=== PATIENT | male | born 1975 | race Caucasian/White ===

== ENCOUNTER 2019-07-05 16:50 | Emergency (ER) | payer OTHER ==
[~2019-07-05] VITALS: Ht 177.8 cm; Wt 76.7 kg
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
[2019-07-05] MEDS: IV NORMAL SALINE 1000ML BAG 1,000 ML IV ONE (18:11)
[2019-07-05] MEDS: fentaNYL PF VIAL 100 MCG/2 ML VIAL IV ONE ×2 (18:12→19:09)
[2019-07-05 18:14] LABS: BASO % 0 % (0-3); EOS % 0 % (0-3); HEMATOCRIT 45.3 % (39.0-53.0); HEMOGLOBIN 15.5 g/dL (13.0-17.5); LYMPH # 1.8 x10^3/uL (1.0-4.8); LYMPH % 11 % (24-48); MEAN CORPUSCULAR HEMOGLOBIN 31 pg (25-35); MEAN CORPUSCULAR HGB CONC 34 g/dL (31-37); MEAN CORPUSCULAR VOLUME 90 fL (79-100); MONO % 6 % (0-9); NEUT # 12.7 x10^3/uL (1.8-7.7); NEUT % 82 % (31-73); PLATELET COUNT 264 x10^3/uL (140-400); RED BLOOD COUNT 5.04 x10^6/uL (4.30-5.70); RED CELL DISTRIBUTION WIDTH 12.9 % (11.5-14.5); WHITE BLOOD COUNT 15.6 x10^3/uL (4.0-11.0)
[2019-07-05 18:21] LABS: CALCIUM 9.5 mg/dL (8.5-10.1); CREATININE 1.2 mg/dL (0.7-1.3); GFR 66.4; POTASSIUM 3.5 mmol/L (3.5-5.1)
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
[2019-07-05 18:26] LABS: ALBUMIN 4.7 g/dL (3.4-5.0); ALBUMIN/GLOBULIN RATIO 1.2 (1.0-1.7); TOTAL BILIRUBIN 0.6 mg/dL (0.2-1.0); TOTAL PROTEIN 8.6 g/dL (6.4-8.2)
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
[2019-07-05 18:33] LABS: PROTHROMBIN TIME PATIENT 12.9 SEC (11.7-14.0)
[2019-07-05] MEDS ORDERED: KETO10TA PO (18:37)
[2019-07-05 18:54] VITALS: BP 147/83
[2019-07-05 19:01] LABS: % BANDS 6 % (0-9); % BASOS 1 % (0-3); % LYMPHS 11 % (24-48); % MONOS 7 % (0-10); % SEGS 75 % (35-66); PLT ESTIMATE ADEQUATE (ADEQUATE)
== END 2019-07-05 19:10 | disposition home or self-care (01) ==
LOC: EEVIPCON 16:50 → ER 16:50
DX: S02.2XXA Fracture of nasal bones, initial encounter for closed fracture (principal); S43.101A Unspecified dislocation of right acromioclavicular joint, initial encounter; S01.112A Laceration without foreign body of left eyelid and periocular area, initial encounter; S00.11XA Contusion of right eyelid and periocular area, initial encounter; M25.511 Pain in right shoulder; Y08.89XA Assault by other specified means, initial encounter; Y93.89 Activity, other specified; Y92.89 Other specified places as the place of occurrence of the external cause; Y99.8 Other external cause status
CPT/HCPCS: 36415; 70450; 70486; 71046; 72125; 73030; 73060; 80053; 85007; 85025; 85610; 85730; 96374; 96376; 99285; J3010; J7030

== ENCOUNTER 2020-02-22 06:04 | Day surgery (SDC) | payer OTHER ==
[~2020-02-22] VITALS: Ht 177.8 cm; Wt 76.5 kg
[~2020-02-22 06:04] MED LIST: BUSP10TA PO; FLUT16SP NS; IBUP-1007 PO; KETO10TA PO; NAPR-514 PO; TOLN108P2 TP; ceFAZolin SODIUM IV Push 1 GM VIAL. IVP PRN
--- NOTE | 2020-02-22 06:35 | DISCH ---
DISCHARGE INSTRUCTIONS Condition on Discharge Condition on Discharge: Stable Activity After Discharge Activity Instructions for Disc: Other, see below (May use right arm for fine motor use like eating shaving writing typing, no lifting pushing pulling with right arm) Lifting Instructions after Dis: No heavy lifting, No pulling or pushing, Do not lift >10 pounds Diet after Discharge Diet after Discharge: Regular Wound Incision Care Wound/Incision Care: Ice to area for comfort, Change dressing (May remove dressing in 3 days may then shower, no soaking) Contacting the after DC Call your doctor for: Concerns you may have Follow-Up Follow up with: Dr. Faulkner 7 to 10 days EL FAULKNER MD Feb 22, 2020 06:35
[2020-02-22] MEDS ORDERED: BUPIVACAINE MPF 0.5% 30 ML VIAL. ONE (06:45)
[2020-02-22] MEDS ORDERED: KETO10TA PO (06:49)
[2020-02-22] MEDS ORDERED: ONDANSETRON PF 4 MG/2 ML VIAL. IV PRN (07:00)
[2020-02-22] MEDS ORDERED: PROCHLORPERAZINE 10 MG/2 ML VIAL. IV PRN (07:00)
[2020-02-22] MEDS ORDERED: MORPHINE SULFATE 2 MG/ML VIAL. IV PRN (07:00)
[2020-02-22] MEDS ORDERED: HYDROmorphone 2 MG/ML VIAL IV PRN (07:00)
[2020-02-22] MEDS ORDERED: fentaNYL PF VIAL 100 MCG/2 ML VIAL IV PRN ×2 (07:00)
[2020-02-22] MEDS ORDERED: LIDOCAINE 1% PF 2 ML VIAL. ID PRN (07:00)
[2020-02-22] MEDS ORDERED: IV RINGERS,LACTATED 1000ML 1,000 ML IV SCH (07:00)
[2020-02-22 07:03] LABS: BASO # 0.1 x10^3/uL (0.0-0.2); BASO % 1 % (0-3); EOS # 0.2 x10^3/uL (0.0-0.7); EOS % 2 % (0-3); HEMATOCRIT 40.8 % (39.0-53.0); HEMOGLOBIN 13.9 g/dL (13.0-17.5); LYMPH % 45 % (24-48); MEAN CORPUSCULAR HEMOGLOBIN 31 pg (25-35); MEAN CORPUSCULAR HGB CONC 34 g/dL (31-37); MEAN CORPUSCULAR VOLUME 91 fL (79-100); MONO # 0.5 x10^3/uL (0.0-1.1); MONO % 8 % (0-9); NEUT # 2.8 x10^3/uL (1.8-7.7); NEUT % 43 % (31-73); PLATELET COUNT 200 x10^3/uL (140-400); RED CELL DISTRIBUTION WIDTH 13.3 % (11.5-14.5); WHITE BLOOD COUNT 6.5 x10^3/uL (4.0-11.0)
[2020-02-22] MEDS ORDERED: EPINEPHrine VIAL 30 MG/30 ML VIAL ONE (07:04)
[2020-02-22 07:05] LABS: CALCIUM 9.8 mg/dL (8.5-10.1); CREATININE 1.2 mg/dL (0.7-1.3); GFR 66.1; POTASSIUM 4.2 mmol/L (3.5-5.1)
[2020-02-22] MEDS ORDERED: PROPOFOL 10 MG/ML (20ML) VIAL. IV ONE (07:12)
[2020-02-22] MEDS ORDERED: LIDOCAINE 2% PF 5 ML VIAL. ONE (07:12)
[2020-02-22] MEDS ORDERED: ROCURONIUM 50 MG/5 ML VIAL. ONE (07:12)
[2020-02-22] MEDS ORDERED: DEXAMETHASONE SOD PHOS 4 MG/ML VIAL ONE (07:12)
[2020-02-22] MEDS ORDERED: SEVOFLURANE 61 TO 120 MINUTES. IH ONE (07:12)
[2020-02-22] MEDS ORDERED: fentaNYL PF VIAL 100 MCG/2 ML VIAL ONE (07:12)
[2020-02-22] MEDS ORDERED: ONDANSETRON PF 4 MG/2 ML VIAL. ONE (07:12)
[2020-02-22] MEDS ORDERED: KETOROLAC 30 MG/ML VIAL. ONE (07:13)
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
[2020-02-22] MEDS ORDERED: ePHEDrine PF IN SALINE 50 MG/10 ML SYRINGE. IV ONE (08:05)
[2020-02-22 10:50] VITALS: BP 104/71
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
== END 2020-02-22 11:14 | disposition home or self-care (01) ==
LOC: SURG 06:04 → EEVIPCON 07:30 → SURG 11:14
PROVIDERS: ATTEND Orthopaedic Surgery
DX: M25.311 Other instability, right shoulder (principal); F41.9 Anxiety disorder, unspecified; F32.9 Major depressive disorder, single episode, unspecified; Z79.899 Other long term (current) drug therapy; Z87.891 Personal history of nicotine dependence
CPT/HCPCS: 29806; 29828; 36415; 80048; 85025; A7015; C1713; J0171; J0690; J1100; J1885; J2405; J2704; J3010; J3490; J7120; A4565